=== PATIENT | male | born 1955 | race Caucasian/White ===

== ENCOUNTER 2017-12-16 10:27 | Emergency (ER) | payer BC, OTHER ==
[~2017-12-16] VITALS: Ht 177.8 cm; Wt 66.7 kg
[~2017-12-16 10:27] MED LIST: CYAN100T PO; FOLI20CA PO; KLN5X PO; OXYC-57 PO
[2017-12-16 10:46] VITALS: TEMP 36.8; Ht 177.8 cm; Wt 66.7 kg
[2017-12-16] MEDS ORDERED: OMEP20CA9 PO (11:12)
[2017-12-16] MEDS ORDERED: LPT10 PO (11:12)
[2017-12-16] MEDS ORDERED: NAPROXEN 250 MG TAB PO STA (11:19)
[2017-12-16] MEDS ORDERED: DIAZEPAM 5MG TAB PO STA (11:19)
[2017-12-16] MEDS ORDERED: METH4PAK PO (11:22)
[2017-12-16] MEDS ORDERED: CYCL5TAB PO (11:22)
[2017-12-16] MEDS ORDERED: NAPR-1169 PO (11:22)
--- NOTE | 2017-12-16 11:22 | EMERGENCY ROOM VISIT NOTE ---
ED Visit Note First contact with patient: 11:05 CHIEF COMPLAINT: Low back pain HISTORY OF PRESENT ILLNESS: This 62-year-old male patient presents to the emergency department, ambulatory, complaining of pain in the low back which began 3 days ago while lifting kettle bells. The patient states he thought the pain was related to just some soreness from weightlifting, and went for a run on . He states the symptoms significantly worsened after running. The pain was gradual in onset, is now constant and worse with movement. The patient notes the pain as sharp and a 4/10. The patient has taken 2 Aleve without relief of the pain. The patient denies any loss of control of their bowel or bladder functions. There has been no leg numbness or weakness, and no change in sensation. No nausea or vomiting or abdominal pain. No chest pain or shortness of breath. The patient has not had prior back injuries. No dysuria or increased urinary frequency. REVIEW OF SYSTEMS: A 10 system review of systems was performed with positives and pertinent negatives listed in the history of present illness. All other systems were reviewed and are negative. ALLERGIES: None MEDICATIONS: Atorvastatin, vitamin B12, folic acid, Prilosec PMH: Hyperlipidemia, B12 deficiency, GERD SOCIAL HISTORY: The patient lives locally with family. He denies drug, alcohol, tobacco use. PHYSICAL EXAM: VITALS: Vitals are noted on the nurse's note and reviewed by myself. Vital signs stable. GENERAL: This is a 62-year-old white male, in no acute distress, nondiaphoretic , well-developed well-nourished. SKIN: The skin was without rashes, erythema, edema, or bruising. Capillary refill less than 2 seconds. NECK: Supple without nuchal rigidity. No cervical spine tenderness. No paraspinous muscle tenderness. HEART: Regular rate and rhythm without murmurs gallops or rubs. LUNGS: Clear to auscultation bilaterally without wheezes, rales or rhonchi. ABDOMEN: Positive bowel sounds x 4. Normal tympanic percussion. Soft, nontender, without masses or organomegaly. Vasques sign negative. MUSCULOSKELETAL: No muscle atrophy, erythema, or edema noted of the back. There is no tenderness over the lumbar spinous processes. There is tenderness over the paraspinous muscles on the right. There is no tenderness over the thoracic spine or paraspinous muscles. There are muscle spasms present. The patient is slow to move around with maximum tenderness with sitting from a lying position. Negative bilateral straight leg raise test. NEURO: Patient was alert and oriented to person place and time. Normal sensation to light and sharp touch. Deep tendon reflexes 2+ in the lower extremities. Dorsalis pedis pulse 2+ bilaterally. Strength 5/5 and equal in the bilateral lower extremities. EMERGENCY DEPARTMENT COURSE: The patient was seen and evaluated as above. I did offer and recommend a low back x-ray. There are no symptoms to suggest fracture, malalignment, subluxation, or infectious process. There is little concern for cauda equina syndrome at this time based on the patient's symptoms and mechanism of injury. The patient declines, as he states he has an international flight to catch and needs to be at the airport by 2 PM. I did discuss proper management with the patient. I recommended muscle relaxers and anti-inflammatory medications. The patient was agreeable with this plan of care. He was given 500 mg naproxen and 10 mg Valium for his symptoms. I did discuss the risks and possible side effects of these medications. The patient was encouraged to avoid alcohol due to the Valium. He states he does not generally like to take steroids, and likely will not take them unless absolutely necessary. He was provided with a prescription for naproxen and I recommended he take this scheduled, twice daily for 2-3 days. I did provide him with a prescription for a Medrol Dosepak in case the naproxen does not seem to be helping, as [place] is going out of the country [place] 1 week. The patient verbalized understanding. He will be given a prescription for Flexeril and advised to take this medication as needed for muscle spasms. I did encourage him to follow-up with his PCP and 1 week when he returns from the [facility]. All questions answered to the patient's satisfaction. Discharge instructions reviewed, patient was discharged home in good condition. I attest that I have personally reviewed the patient's current medication list. Patient was found to have normal blood pressure on screening and does not require follow-up. Etiologies such as lumbago, sciatica, cauda equina, epidural abscess, osteomyelitis, fracture, aortic disease, metastatic disease, infection, renal colic, gastrointestinal, as well as others were entertained. DIAGNOSIS: Lumbar strain The chart was completed utilizing Dragon Speech voice recognition software. Grammatical errors, random word insertions, pronoun errors, and incomplete sentences are an occasional consequence of this system due to software limitations, ambient noise, and hardware issues. Any formal questions or concerns about the content, text, or information contained within the body of this dictation should be directly addressed to the provider for clarification. Current/Historical Medications Scheduled Atorvastatin (Lipitor), 10 MG PO DAILY Cyanocobalamin (Vitamin B-12), Unknown Dose PO DAILY Folic Acid (Folic Acid), Unknown Dose PO DAILY Methylprednisolone (Medrol Dosepak), 0 PO DAILY Naproxen (Naprosyn), 500 MG PO BID Omeprazole (Prilosec), 20 MG PO DAILY Scheduled PRN Cyclobenzaprine Hcl (Flexeril), 5-10 MG PO TID PRN for Muscle Spasms Allergies Coded Allergies: NO KNOWN DRUG ALLERGIES (Verified Allergy, Unknown, , 12/16/17) Ragweed (Unverified Allergy, Unknown, unknown, 12/16/17) Vital Signs Date Time Temp Pulse Resp B/P (MAP) Pulse Ox O2 Delivery O2 Flow Rate FiO2 12/16/17 11:25 56 18 148/91 99 Room Air 12/16/17 10:46 36.8 51 20 145/82 97 Room Air Medications Administered Medications (Trade) Dose Ordered Sig/Anil Route Start Time Stop Time Status Last Admin Dose Admin Naproxen (Naprosyn Tab) 500 mg NOW STAT PO 12/16/17 11:19 12/16/17 11:21 DC 12/16/17 11:25 500 MG Diazepam (Valium Tab) 10 mg NOW STAT PO 12/16/17 11:19 12/16/17 11:21 DC 12/16/17 11:25 10 MG Departure Information Impression Primary Impression: Strain of lumbar region Dispostion Home / Self-Care Condition GOOD Prescriptions Methylprednisolone (MEDROL DOSEPAK) 4 Mg Damion 0 PO DAILY, #1 PKT Prov: Hetal Menendez PA-C 12/16/17 Naproxen (Naprosyn) 500 Mg Tab 500 MG PO BID, #60 TAB Prov: Hetal Menendez PA-C 12/16/17 Cyclobenzaprine Hcl (FLEXERIL) 5 Mg Tab 5-10 MG PO TID Y for Muscle Spasms, #30 TAB PRN Prov: Hetal Menendez PA-C 12/16/17 Referrals Alea Wong DO (PCP) Patient Instructions ED Exercises Lumbar Muscles, ED Low Back Pain Injury, ED Sprain Strain Lumbar, [facility] Additional Instructions You have been treated in the Emergency Department for Back Pain. You have received medicine (Valium) in the emergency department which impairs your ability to operate a vehicle. It is illegal for you to drive after receiving these medicines. You have been prescribed Flexeril (cyclobenzaprine) 1-2 tabs orally, three times per day. Do NOT exceed 30 mg (6 tabs) per day. Take your first dose at bedtime as it can make you drowsy. Always take all medications as prescribed. You have been prescribed a Medrol Dosepak. This is a steroid which will help decrease your inflammation, redness, and itch. Take the medicine as prescribed. Take the ENTIRE 6 day course of the steroids. For pain control, you can use the following [id number] medicines (if >12 yo): Naproxen may be used for fever or pain. Use 500mg every 12 hours as needed. Take with food. Avoid using more than 1000mg in a 24 hour period. Do not use 1000mg per day for more than three consecutive days without physician direction. Prolonged inappropriate use can lead to stomach upset or ulcers. If this medication is not helping with your symptoms, you may take Medrol Dosepak. No NSAIDs while on steroids. (AND/OR) Acetaminophen(Tylenol) may be used for fever or pain. Use 1000mg every six hours as needed. Avoid using more than 3000mg in a 24 hour period. If this is an acute injury, ice can be applied to the area of pain for the first 3 days to help decrease pain and inflammation. After the first 3 days, a heating pad can be used over the area for continued soothing relief. You should schedule a follow-up appointment in 2-3 days with your Primary Care Provider for further evaluation and treatment of your back pain. Return to the Emergency Department if your current symptoms worsen despite treatment course outlined above, or if you develop any of the following symptoms : intractable pain despite aforementioned treatment course, loss of control of your bowel or bladder, numbness or tingling in your groin, or development of a fever. Problem Qualifiers Primary Impression: Strain of lumbar region Encounter type: initial encounter Qualified Codes: S39.012A - Strain of muscle, fascia and tendon of lower back, initial encounter
[2017-12-16 11:25] VITALS: BP 148/91; PULSE 56; O2SAT 99
== END 2017-12-16 11:33 | disposition home or self-care (01) ==
LOC: C.EDB 10:29 → C.EDD 11:33
DX: S39.012A Strain of muscle, fascia and tendon of lower back, initial encounter (principal); X50.9XXA Other and unspecified overexertion or strenuous movements or postures, initial encounter; Y93.B3 Activity, free weights; Y93.02 Activity, running; Y99.8 Other external cause status; E78.5 Hyperlipidemia, unspecified; E53.8 Deficiency of other specified B group vitamins; K21.9 Gastro-esophageal reflux disease without esophagitis; Z79.899 Other long term (current) drug therapy